=== PATIENT | male | born 1950 | race African-American/Black ===

== ENCOUNTER → 2022-08-23 | Day surgery (SDC) | payer MEDICARE, BC ==
[2022-08-19 13:29] LABS: BASOPHILS % 0.3 % (0.0-1.0); EOSINOPHILS # (AUTO) 0.2 (0.0-0.4); EOSINOPHILS % 5.6 % (0.0-6.0); HEMATOCRIT 41.6 % (38.2-49.6); HEMOGLOBIN 13.5 g/dL (14.0-18.0); LYMPHOCYTES # (AUTO) 1.2 (1.0-3.2); LYMPHOCYTES % 34.2 % (18.0-39.1); MEAN CORPUSCULAR HEMOGLOBIN 28.2 pg (28-32); MEAN CORPUSCULAR HGB CONC 32.5 g/dL (31-35); MONOCYTES # (AUTO) 0.3 (0.2-0.8); NEUTROPHILS # (AUTO) 1.8 (2.1-6.9); NEUTROPHILS % 50.9 % (38.7-80.0); PLATELET COUNT 141 x10e3/uL (140-360); RED BLOOD COUNT 4.78 x10e6/uL (4.3-5.7); RED CELL DISTRIBUTION WIDTH 13.5 % (11.7-14.4)
[2022-08-19 13:43] LABS: ANION GAP 10.5 mmol/L (8-16); CALCIUM 10.3 mg/dL (8.4-10.2); CREATININE, SERUM 1.03 mg/dL (0.72-1.25); POTASSIUM 3.5 mmol/L (3.5-5.1)
[~2022-08-23] MED LIST: ACETAMINOPHEN/CODEINE 300MG - 30MG TAB ONE; AMLODIPINE BESYL5 MG PO; BYDUREON B2 MG/0.85 SC; BYSTOLIC10 MG PO; GLYCOPYRROLATE INJ 0.2 MG/ML VIAL ONE; KETOROLAC TROMETHAMINE 30 MG/ML VIAL ONE; LACTATED RINGER'S 1,000 ML ONE; LIDOCAINE HCL 2% LOCAL INJ 5 ML SDV VIAL INJ ONE; MICARDIS80 MG PO; MIDAZOLAM HCL 2 MG/2 ML VIAL ONE; ONDANSETRON HCL INJ 2MG/ML 2ML 2 MG/ML VIAL ONE; POVIDONE IODINE 0.05% 0.05 % ML PO ONE; PROPOFOL IV EMULSION 10 MG/ML 20 ML VIAL ONE; SEVOFLURANE INHAL SOLN 250 ML PEN BTL ONE; SIMVASTATIN20 MG PO; XIGDUO XR 10 M1 EAC1 PO
[2022-08-23 07:30] VITALS: TEMP 97.7
[2022-08-23 08:35] VITALS: BP 169/97; PULSE 54; RESP 18; O2SAT 98
== END | disposition home or self-care (01) ==
LOC: OR 05:41
PROVIDERS: ATTEND Specialist
DX: G56.02 Carpal tunnel syndrome, left upper limb (principal); E11.9 Type 2 diabetes mellitus without complications; I10 Essential (primary) hypertension; E78.5 Hyperlipidemia, unspecified; Z01.810 Encounter for preprocedural cardiovascular examination; Z01.812 Encounter for preprocedural laboratory examination; Z01.818 Encounter for other preprocedural examination; Z79.84 Long term (current) use of oral hypoglycemic drugs; Z79.899 Other long term (current) drug therapy; Z87.891 Personal history of nicotine dependence
CPT/HCPCS: 29848; 36415 ×2; 71046; 80048; 82948; 85025; 93005; J0690; J1885; J2001; J2250; J2405; J2704; J7121